=== PATIENT | male | born 1945 | race Caucasian/White ===

== ENCOUNTER 2016-08-08 09:06 | Inpatient (IN) ==
[~2016-08-08 09:06] MED LIST: ONDANSETRON 4 MG/2 ML INJECTION IVP ONE
[2016-08-08] MEDS: LR 1,000 ML IV SCH ×2 (10:13→13:36)
[2016-08-08] MEDS ORDERED: LIDOCAINE 1% (10mg/ml) 10mL MDV SQ ONE (10:30)
[2016-08-08] MEDS ORDERED: NOZIN NASAL SWAB NAS ONE ×2 (10:30→15:13)
[2016-08-08] MEDS ORDERED: SALINE FLUSH 10ml SYRINGE IVF PRN (10:30)
[2016-08-08] MEDS ORDERED: MELOXICAM 15 MG TABLET PO ONE (10:30)
--- NOTE | 2016-08-08 10:36 | Anesthesia Preoperative Report ---
Anesthesia Preoperative Record - Date and Time Date: 08/08/16 Preoperative Diagnosis: PRIMARY DEGENERATIVE JOINT DISEASE Proposed Procedure: LEFT KNEE ARTHROPLASTY NPO Since Date: 08/07/16 NPO Since Time: 23:00 Allergies/Adverse Reactions: Allergies Allergy/AdvReac Type Severity Reaction Status Date / Time hydrocodone bit Allergy Intermediate ITCHING Uncoded 08/02/16 08:50 - Vital Signs Vital Signs: Temp Pulse Resp BP Pulse Ox 98.1 F 68 18 137/86 96 08/08/16 09:24 08/08/16 09:58 08/08/16 09:24 08/08/16 09:24 08/08/16 09:24 Height and Weight: Height 1.78 m Weight 91.6 kg Body Mass Index 29.0 - Medications Inpatient Medications: Current Medications Acetaminophen (Tylenol) 1,000 mg PO PREOP ONE Stop: 08/08/16 11:01 Last Admin: 08/08/16 10:17 Dose: 1,000 mg Cefazolin Sodium (Kefzol) 2 g IVP PREOP ONE Stop: 08/08/16 11:01 Dexamethasone (Decadron) 10 mg IVP PREOP ONE Stop: 08/08/16 11:21 Last Admin: 08/08/16 10:14 Dose: 10 mg Lactated Ringer's (Lactated Ringers) 1,000 mls @ 50 mls/hr IV .Q20H DANIELA Last Admin: 08/08/16 10:13 Dose: 50 mls/hr Famotidine/Sodium Chloride (Pepcid Premix) 20 mg in 50 mls @ 100 mls/hr IV PREOP ONE Stop: 08/08/16 11:29 Last Infusion: 08/08/16 10:22 Dose: Infused Epinephrine HCl 0.25 mg/Bupivacaine HCl 75 ml/Morphine Sulfate 15 mg/Ketorolac Tromethamine 60 mg/Sodium Chloride 65.25 mls @ 0 mls/hr IJ INTRAOP ONE; Per Protocol PRN Reason: Protocol Stop: 08/08/16 11:36 Tranexamic Acid 1,000 mg/ (Sodium Chloride) 110 mls @ 660 mls/hr IV INTRAOP ONE Stop: 08/08/16 12:09 Tranexamic Acid 1,000 mg/ (Sodium Chloride) 110 mls @ 660 mls/hr IV INTRAOP ONE Stop: 08/08/16 11:29 Sodium Chloride (Iv Flush) 10 - 80 ml IVF PRN PRN PRN Reason: Flushing Home Medications: Home Medications Medication Instructions Recorded Confirmed Type Tamsulosin HCl [Flomax] 0.4 mg PO HS #0 01/04/09 08/08/16 History Amantadine HCl [Amantadine] 1 cap PO BID #0 10/12/14 08/08/16 History Atorvastatin Calcium 40 mg PO HS #0 tab 10/12/14 08/08/16 History Carbidopa/Levodopa 2 tab PO QID #0 10/12/14 08/08/16 History [Carbidopa-Levodopa 25-100 Tab] Polyethylene Glycol 1000 1 dose PO DAILY #0 10/12/14 08/08/16 History [Polyethylene Glycol] Selegiline HCl 5 mg PO BID #0 10/12/14 08/08/16 History ropinirole 0.25 mg tablet 0.25 mg PO TID 08/01/16 08/08/16 History Acetaminophen [Tylenol] 650 mg PO QID PRN 08/02/16 08/08/16 History Meloxicam [Meloxicam] 1 tab PO DAILY 08/02/16 08/08/16 History Aspirin Chewable [ASA] 81 mg PO DAILY 08/08/16 08/08/16 History - Medical History Cardiovascular: Reports: Abnormal EKG (SEEN BY CARDILIOGY AND CLEARED FOR SURGERY ) Neuro/Musculoskeletal: Reports: Other (PARKINSONS AND TREMORS ) - Surgical History Cardiac Surgeries/Treatments: Reports: Cardiac Catheterization (8 YRS AGO ) GI Surgery/Treatments: Reports: Hernia Repair, Colonoscopy Surgery/Treatment: REPORT: Transurethral Resection Comment Only: Other (JULY 13, 2016 PROSTATE SURGERY) Musculoskeletal Surgery/Tx: Reports: Total Knee Replacement (Rt), Other (lumbar discectomy) - Social History Smoking Status: Former smoker Substance Use Type: does not use - Pertinent Findings EKG Rhythm: Normal Sinus Rhythm - Physical Exam Respiratory Exam: Present: lungs clear, bilateral breath sounds equal Cardiovascular Exam: Present: regular rate and rhythm, no murmur - Airway Assessment Mallampati Score: II TMD: 3 Fingerbreadths Overall Assessment: no airway concerns - ASA ASA Score: 2 - Plan Anesthesia: General Inhalation Gases Peripheral Nerve Block: Saphenous-Left - Discussion Discussion: Discussed risks/options/alternatives of anesthesia and questions answered. Patient consents. Nursing pain assessment noted. Attestation Statement: Prior to the delivery of any anesthetic medication, I examined the patient, developed the plan, obtained the patient's consent and discussed the risk and benefits of the procedure with the patient/guardian.
[2016-08-08] MEDS ORDERED: MIDAZOLAM 2mg/2ml INJECTION IVP ONE (10:42)
[2016-08-08] MEDS ORDERED: [UNRECOGNIZED DRUG - OTHER] IV ONE (10:45)
[2016-08-08] MEDS ORDERED: ROPIVACAINE 0.5% (5mg/ml) 30ml INJ ONE (10:48)
[2016-08-08] MEDS ORDERED: CEFAZOLIN 1 G INJECTION IVP ONE (11:00)
[2016-08-08] MEDS ORDERED: FAMOTIDINE PREMIX 20 MG/50 ML BAG IV ONE (11:00)
[2016-08-08] MEDS ORDERED: ACETAMINOPHEN 500 MG TABLET PO ONE (11:00)
[2016-08-08] MEDS ORDERED: VANCOMYCIN 1,000 MG INJECTION IAR ONE (11:14)
[2016-08-08] MEDS ORDERED: TRANEXAMIC ACID 1,000 MG in NS 100 ML IV ONE ×2 (11:20→12:00)
[2016-08-08] MEDS ORDERED: DEXAMETHASONE 4 MG/ML INJECTION IVP ONE (11:20)
[2016-08-08] MEDS ORDERED: FentaNYL 250 MCG/5 ML INJECTION ONE ×2 (11:27→12:20)
[2016-08-08] MEDS ORDERED: LIDOCAINE 2% JELLY Tube 30ml ONE (11:28)
[2016-08-08] MEDS ORDERED: MIDAZOLAM 2mg/2ml INJECTION ONE (11:46)
[2016-08-08] MEDS ORDERED: SEVOFLURANE 250ml LIQUID IH ONE ×2 (12:00)
[2016-08-08] MEDS: [UNRECOGNIZED DRUG - MIXTURE] IJ ONE (12:36)
--- NOTE | 2016-08-08 12:37 | Anesthesia Procedure Note ---
Peripheral Nerve Blockade - Procedure Physician: Nikos Escalera MD Date: 08/08/16 Surgical Procedure: left knee arthroplasty Discussion: Discussed risks/options/alternatives of anesthesia and questions answered. Patient consents. Nursing pain assessment noted. pt has involuntary tremors in legs due to Parkinson which made it very difficult to visualize needle. Care was taken to stay away from an intraarterial injection and try to get the best block without putting pt at risk. Block Start: 10:54 Block Stop: 11:05 Blocked Employed: Adductor Canal Indication: Post-Operative Pain Approach: Left Side Confirmed Position: Supine Patient: Consent, Risks/Benefits Discussed, Informed IV Sedation: Yes Midazolam (mg): 2 Initial Vital Signs: Temperature 98.1 F 08/08/16 09:24 Temperature Source Oral 08/08/16 09:24 Pulse Rate 66 08/08/16 09:24 Respiratory Rate 18 08/08/16 09:24 Blood Pressure 137/86 08/08/16 09:24 Blood Pressure Mean 103 08/08/16 09:24 Blood Pressure Position Sitting 08/08/16 09:24 Pulse Oximetry 96 08/08/16 09:24 Oxygen Delivery Method 08/08/16 09:24 Post Vital Signs: Temp Pulse Resp BP Pulse Ox 98.1 F 65 18 137/82 95 08/08/16 09:24 08/08/16 11:19 08/08/16 11:19 08/08/16 11:19 08/08/16 11:19 Initial Pain Pain Score: 1 Post Block Pain Score: 0 Prep: Chlorhexadine/ETOH Ultrasound Used?: Yes - Injectate Ropivacaine (%): 0.5 Ropivacaine (mL): 20 Injection: Injection made incrementally with constant monitoring and aspiration every ml
--- NOTE | 2016-08-08 13:33 | Operative Note ---
- Procedure Date of Admission: 08/08/16 Side: left Preoperative Diagnosis: knee primary DJD Postoperative Diagnosis: Same as preoperative diagnosis. Operation: Procedures Total knee replacement (10/22/14) Operation: total knee arthroplasty (left) Surgeon: Shikha Escalera MD Web Sizer: SATNAM Zuniga Complications: None. Anesthesia: General Inhalation Gases Peripheral Nerve Block: Saphenous-Left Estimated Blood Loss: See Anesthesia Record. Fluids: Please see Anesthesia Record. Description of Procedure: Mr. Hawk and his knee were identified and marked in the preoperative holding area. He was brought back to the operating suite and placed supine on the operating table. Spinal anesthetic was administered. The operative lower extremity was prepped and draped in a sterile fashion. Timeout was performed. He had a valgus deformity which was fixed with no flexion contracture. An anterior midline incision followed by medial parapatellar arthrotomy was performed. The tourniquet was not used until cementing. Hemostasis was obtained with electrocautery. The patella was resurfaced to a size 32. A distal femoral osteotomy was then performed in 5 of valgus using intramedullary guide. The femur was sized at a 6 and rotation set using the epicondylar axis. Distal femoral cuts were performed with a 4-in-1 cutting block. A proximal tibial cut was then made perpendicular to its long axis using an extramedullary guide. At this point remaining meniscus and osteophytes were removed and joint cocktail was injected throughout soft tissue. Trial components were placed with a 9 mm spacer. He was tight so another 2 mm were taken off the tibial cut. This allowed for full extension and flexion and the patella tracked well. The leg was then exsanguinated and the tourniquet inflated to 250 mmHg. The tibia was then stamped at a size 6 at the proper rotation. The bone was then prepared for cementing and [place] [employer] components were cemented into place and allowed to cure in extension. The tourniquet was then let down and hemostasis obtained with electrocautery. Betadine solution was used during the curing period for 3 minutes. 1 g of vancomycin powder was placed into the joint before the capsulotomy was repaired with #1 Vicryl. I then left my graduate assistant athletic trainer close the subcutaneous tissue and skin with 2-0 Vicryl and Monocryl. Dermabond was used on the skin. The drapes were then removed and she was taken to recovery room under the care of anesthesia.
--- NOTE | 2016-08-08 13:47 | History & Physical Update ---
- History and Physical Update Date: 08/08/16 Update: I evaluated this patient and found no changes in the history and clinical exam findings. The treatment plan and recommendations are also unchanged from the previous documentation.
[2016-08-08] MEDS: HYDROMORPHONE 2 MG/ML INJECTION IVP PRN ×2 (14:09→14:22)
--- NOTE | 2016-08-08 14:28 | XRay Report ---
Indication: postoperative image left knee replacement PROCEDURE: XR knee LT 2V: Encounter: Initial Comparison: August 02, 2016 Findings: Postoperative changes of left total knee replacement are seen. There is expected postoperative subcutaneous gas. No evidence of hardware failure or acute fracture. No retained radiopaque surgical instruments or sponges. Overlying material causing artifact. Impression: New left total knee prosthesis without evidence of immediate complication. .
[2016-08-08] MEDS ORDERED: DiphenhydrAMINE 50 MG/ML INJECTION IVP PRN (15:13)
[2016-08-08] MEDS ORDERED: ACETAMINOPHEN 325 MG TABLET PO PRN (15:13)
[2016-08-08] MEDS ORDERED: DiphenhydrAMINE 25 MG CAPSULE PO PRN (15:13)
[2016-08-08] MEDS ORDERED: LORazepam 1 MG TABLET PO PRN (15:13)
[2016-08-08] MEDS: OXYCODONE IR 5 MG TABLET PO PRN (15:25)
[2016-08-08] MEDS: NS 1,000 ML IV SCH (15:25)
[2016-08-08] MEDS: NOZIN NASAL SWAB NAS SCH ×2 (15:26→21:58)
[2016-08-08] MEDS: CARBIDOPA/LEVODOPA 25 MG/100 MG TABLET PO SCH ×2 (17:35→21:58)
[2016-08-08] MEDS: CEFAZOLIN 2 G in NS 100 ML IV SCH (20:04)
[2016-08-08] MEDS: ONDANSETRON 4 MG/2 ML INJECTION IVP PRN (20:59)
[2016-08-08] MEDS: ASPIRIN *EC* 325 MG TABLET PO SCH (21:47)
[2016-08-08] MEDS: DOCUSATE SODIUM 100 MG CAPSULE PO SCH (21:57)
[2016-08-08] MEDS: AMANTADINE 100 MG CAPSULE PO SCH (21:57)
[2016-08-08] MEDS ORDERED: SENNOSIDES 8.6 MG TABLET PO SCH (22:00)
[2016-08-08] MEDS ORDERED: ATORVASTATIN 40 MG TABLET PO SCH (22:00)
[2016-08-08] MEDS ORDERED: TAMSULOSIN 0.4 MG CAPSULE PO SCH (22:00)
[2016-08-09] MEDS: OXYCODONE IR 5 MG TABLET PO PRN ×3 (02:39→13:23)
[2016-08-09] MEDS: CEFAZOLIN 2 G in NS 100 ML IV SCH (04:39)
[2016-08-09] MEDS: NS 1,000 ML IV SCH (04:39)
[2016-08-09] MEDS: CARBIDOPA/LEVODOPA 25 MG/100 MG TABLET PO SCH ×2 (06:01→11:53)
[2016-08-09] MEDS: SELEGILINE 5 MG PO SCH ×2 (06:03→11:56)
[2016-08-09] MEDS: NOZIN NASAL SWAB NAS SCH ×2 (06:03→14:47)
[2016-08-09] MEDS: [UNRECOGNIZED DRUG - MIXTURE] IJ ONE (07:49)
--- NOTE | 2016-08-09 08:22 | Orthopedic Progress Note ---
Date: Subjective/Severity of Illness: Juan C is doing very well. He had some nausea after pain meds on an empty stomach. Also had some nausea after ice cream and meds last night. No CP, cough or SOA. He feels okay this AM. "It's a good day, I woke up". No other concerns reported. Parkinson's sx currently controlled. Orthopedic Objective PO Vital signs: Temp Pulse Resp BP Pulse Ox 96.7 F L 80 16 124/73 96 08/09/16 04:42 08/09/16 04:42 08/09/16 04:42 08/09/16 04:42 08/09/16 04:42 Height and Weight: Height 5 ft 10 in Weight 201 lb 15.095 oz Body Mass Index 29.0 - Constitutional General Appearance: Present: alert, no acute distress - Respiratory Exam Present: non-labored - Extremities Exam Extremities: Present: pulses intact. Absent: calf tenderness - Surgical Site Incision: Mepilex dressing intact, no drainage - Neurological Exam Present: no deficits, other (Has parkinson's dz.) - Psychiatric Exam Present: alert - Labs Result Diagrams: 08/09/16 04:28 08/09/16 04:28 Abnormal lab results 08/09/16 08/09/16 Range/Units 04:28 04:28 RBC 3.44 L (4.50-5.90) M/MM3 Hgb 11.3 L (13.5-17.5) GM/DL Hct 34.4 L (41-53) % MPV 9.2 L (9.4-12.4) UM3 BUN 21.0 H (9-20) MG/DL Glucose 127 H (75-110) MG/DL H & H 08/09/16 Range/Units 04:28 Hgb 11.3 L (13.5-17.5) GM/DL Hct 34.4 L (41-53) % Orthopedic Assessment and Plan (1) Status post total left knee replacement Status: Acute Assessment and Plan: His blood glucose was elevated to 127 this AM but he ate ice cream and hasn't been NPO. Monitor. Parkinson's sx are stable. Resume meds. Nausea was not a complaint he voiced to me. Will give pain meds with food. Monitor. I anticipate discharge later today. Will recheck after therapy. Current anti-coagulation protocol for VTE prophylaxis. SCD's. PT/OT services to improve independent function. Discharge Planning per Case Management. (2) Parkinsons Status: Acute Hospital Course Summary Disclaimer: The visit summary below is not to be considered part of the above Progress Note.
[2016-08-09] MEDS: ONDANSETRON 4 MG/2 ML INJECTION IVP PRN (08:51)
[2016-08-09] MEDS ORDERED: POLYETHYL GLYCOL 3350 17gm PACKET PO SCH (09:00)
[2016-08-09] MEDS ORDERED: MELOXICAM 15 MG TABLET PO SCH (09:00)
[2016-08-09] MEDS: DOCUSATE SODIUM 100 MG CAPSULE PO SCH (10:12)
[2016-08-09] MEDS: ASPIRIN *EC* 325 MG TABLET PO SCH (10:12)
[2016-08-09] MEDS: AMANTADINE 100 MG CAPSULE PO SCH (10:14)
[2016-08-09] MEDS ORDERED: SENNOSIDES 8.6 MG TABLET PO PRN (13:49)
--- NOTE | 2016-08-09 15:41 | Discharge Summary ---
Orthopedic Discharge Info Date of admission: 08/08/16 09:06 Primary care physician: Jad Chandler MD Attending Physician: Nikos Escalera MD Consults: 08/08/16 06:59 Consult to Anesthesiology [CONS] Routine Consulting Provider: SATNAM Perez Reason For Exam: Preoperative Assessment 08/08/16 15:13 Case Management Consult [CONS] Routine Reason For Exam: Discharge Planning DME-Walker [CONS] Routine Height: 5 ft 10 in Weight: 201 lb 15.095 oz Comment: change dressing in 2 weeks Total Joint Outpatient Therapy [CONS] Routine Comment: change dressing in 2 weeks - Discharge Diagnosis (1) Parkinsons Status: Acute (2) Status post total left knee replacement Status: Acute - Procedures Procedures: Procedures Left Total knee replacement - Laboratory Result Diagrams: 08/09/16 04:28 08/09/16 04:28 Laboratory: Abnormal lab results 08/09/16 08/09/16 Range/Units 04:28 04:28 RBC 3.44 L (4.50-5.90) M/MM3 Hgb 11.3 L (13.5-17.5) GM/DL Hct 34.4 L (41-53) % MPV 9.2 L (9.4-12.4) UM3 BUN 21.0 H (9-20) MG/DL Glucose 127 H (75-110) MG/DL H & H 08/09/16 Range/Units 04:28 Hgb 11.3 L (13.5-17.5) GM/DL Hct 34.4 L (41-53) % Orthopedic Discharge HPI - HPI Comments This patient was admitted for elective surgical tx of end stage degenerative joint disease that failed to respond to conservative treatment. Further details of this is found in the admission H&P. Orthopedic Hospital Course Hospital course: 08/09/16 15:38 After appropriate preoperative clearance and signing of operative consent, the patient was given IV antibiotics, according to orthopedic protocol. The patient was taken to the operating room and underwent elective joint arthroplasty. Following surgery, antibiotics were discontinued less than 24 hours according to joint protocol. Appropriate anticoagulants were initiated and SCDs added for DVT prevention. The dressing was clean, dry, and intact. Pain control was obtained via multimodal approach. Bowel motivation addressed with scheduled and PRN medications. Early mobilization was initiated through PT services. Discharge arrangements made by a collaborative effort between the patient and Case Management. Follow-up is scheduled in 2-3 weeks. Discharge instructions given by orthopedic providers and nursing staff at discharge. Discharge condition was good. Ongoing care required?: No - Postoperative Anemia patient received IVF, labs monitored daily, no intervention required, HGB drop- acceptable Discharge Plan - Med Rec/Dispo Referrals/Follow Up: Nikos Escalera MD [Physician] - 08/30/16 1:00 pm [facility] Instructions: [facility] Postop Instructions Additional Instructions: [facility] ON 08/11/2016 AT 1:00PM FOR PHYSICAL THERAPY EVAL. PHONE [phone] Prescriptions: New Oxycodone *Ir* [Roxicodone *Ir*] 5 - 15 mg PO Q3H PRN #60 PRN Reason: Breakthrough Pain Acetaminophen [Tylenol] 650 mg PO QID PRN #100 PRN Reason: Pain Aspirin *EC* [Ecotrin] 325 mg PO BID #84 Continue Tamsulosin HCl [Flomax] 0.4 mg PO HS #0 Selegiline HCl 5 mg PO BID #0 Atorvastatin Calcium 40 mg PO HS #0 tab Polyethylene Glycol 1000 [Polyethylene Glycol] 1 dose PO DAILY #0 Tizanidine HCl 1 tab PO Q8HPRN PRN #30 tab PRN Reason: SPASMS Carbidopa/Levodopa [Carbidopa-Levodopa 25-100 Tab] 2 tab PO QID #0 Amantadine HCl [Amantadine] 1 cap PO BID #0 Meloxicam 1 tab PO DAILY Discontinued Aspirin Chewable [ASA] 81 mg PO DAILY Acetaminophen [Tylenol] 650 mg PO QID PRN PRN Reason: Pain - Disposition 01 Discharged Home, Self-Care
[2016-08-10] MEDS ORDERED: BISACODYL 10 MG SUPPOSITORY RECTALLY SCH (20:00)
== END 2016-08-09 16:40 | disposition home or self-care (01) | DRG 470 ==
LOC: SRG 09:06
PROVIDERS: ADMIT Orthopaedic Surgery; ATTEND Orthopaedic Surgery